=== PATIENT | male | born 1950 | race Caucasian/White ===

== ENCOUNTER → 2024-10-30 11:59 | Outpatient (REF) | payer MEDICARE, OTHER, SELFPAY | LOC: CLAB 11:59 | PROVIDERS: ATTENDING PHYSICIAN Specialist | DX: R97.20 Elevated prostate specific antigen [PSA] (principal) | CPT/HCPCS: 88305 ==

== ENCOUNTER → 2025-01-27 10:42 | Outpatient (REF) | payer MEDICARE, OTHER, SELFPAY | LOC: MRI 3T 10:42 | PROVIDERS: ATTENDING PHYSICIAN Specialist; FAMILY PHYSICIAN Family Medicine | DX: C61 Malignant neoplasm of prostate (principal) | CPT/HCPCS: 72197; A9575 ==

== ENCOUNTER → 2025-02-12 17:11 | Outpatient (REF) | payer MEDICARE, OTHER, SELFPAY | LOC: MRI 17:11 | PROVIDERS: ATTENDING PHYSICIAN Specialist; FAMILY PHYSICIAN Family Medicine | DX: D49.511 Neoplasm of unspecified behavior of right kidney (principal) | CPT/HCPCS: 74183; A9575 ==